=== PATIENT | female | born 1955 | race Caucasian/White ===

== ENCOUNTER 2018-06-29 12:12 | Outpatient (REF) | payer BC, SELFPAY ==
--- NOTE | 2018-06-29 11:45 | PAPFT_PTH ---
PATIENT: Evita Pickard LOC: [facility]#:[id number] AGE/SX: 63/F ROOM: RE06/29/[address]: Ryan Porter : 1955 BED: DIS: 06/29/2018 SPEC #: [id number] RECD: 06/30/18 13:02 STATUS: KIRBY HENDERSON #: [id number] ROBBIE: 06/29/18 11:[address]: Ryan Porter DEPT: [facility] Cytology RECD BY: Beckie Ruano ENTERED: 06/30/18 13:02 SP TYPE: PAPFT OTHR DR: Salas Fitch Tissues: 1 - CX/ENDOCX FOR PAP SMEARS Procedures: PAP THIN PREP/[facility] Screening HPV DNA PROBE Comments: [id number]
[2018-06-29 20:43] LABS: Anion Gap 6.5 mmol/L (3-11); BUN 12 mg/dL (7-18); CO2 30.5 mmol/L (21.0-32.0); CREATININE 0.72 mg/dL (0.55-1.02); Calcium 9.1 mg/dL (8.5-10.1); Chloride 105 mmol/L (98-107); Glucose 90 mg/dL (70-100); LDL CHOLESTEROL 93 mg/dL (<100); Potassium 3.9 mmol/L (3.5-5.1); Sodium 142 mmol/L (136-145)
== END 2018-06-29 12:32 ==
LOC: NCHCN 12:12
PROVIDERS: PCP Physician Assistant; Visit Provider Internal Medicine
DX: Z00.00 Encounter for general adult medical examination without abnormal findings (principal); Z13.220 Encounter for screening for lipoid disorders; Z13.228 Encounter for screening for other metabolic disorders; Z12.4 Encounter for screening for malignant neoplasm of cervix; Z11.51 Encounter for screening for human papillomavirus (HPV); Z01.419 Encounter for gynecological examination (general) (routine) without abnormal findings
CPT/HCPCS: 80048; 83721; 88142; 87624

== ENCOUNTER 2021-03-12 17:17 | Outpatient (REF) | payer OTHER, SELFPAY ==
[2021-03-12 20:49] LABS: HCT 43.6 % (36.0-46.0); MCH 30.9 pg (27.0-33.0); MCHC 34.4 % (32.0-36.0); MCV 89.9 fL (80-95); MPV 10.1 fL (8.0-11.0); Platelet Count 280 10^3/uL (130-400); RBC 4.85 10^6/uL (3.93-5.22); RDW 11.9 % (11.7-14.6); RDW-SD 38.9 fL; WBC 6.22 10^3/uL (4.4-10.8)
[2021-03-12 20:58] LABS: Anion Gap 12.6 mmol/L (3-11); BUN 12 mg/dL (7-18); CO2 26.4 mmol/L (21.0-32.0); CREATININE 0.7 mg/dL (0.55-1.02); Calcium 9.4 mg/dL (8.5-10.1); Chloride 105 mmol/L (98-107); Glucose 98 mg/dL (74-106); Potassium 3.6 mmol/L (3.5-5.1); Sodium 144 mmol/L (136-145); TSH 2.26 uIU/mL (0.36-3.74)
[2021-03-12 21:35] LABS: COMMENT (LAB VIEW ONLY) 14.69 mg/dL
[2021-03-12 21:43] LABS: PROTEIN < 6.0 mg/dL
== END 2021-03-12 17:18 | disposition home or self-care (01) ==
LOC: NCHCN 17:17
PROVIDERS: PCP Physician Assistant; Visit Provider Internal Medicine
DX: Z00.00 Encounter for general adult medical examination without abnormal findings (principal); M48.061 Spinal stenosis, lumbar region without neurogenic claudication; E66.9 Obesity, unspecified; I10 Essential (primary) hypertension
CPT/HCPCS: 80048; 85027; 82565; 84156; 84443

== ENCOUNTER 2023-06-24 15:57 | Outpatient (REF) | payer MEDICARE, SELFPAY ==
[2023-06-24 19:02] LABS: Anion Gap 8.5 mmol/L (3-11); BUN 15 mg/dL (7-18); CO2 30.5 mmol/L (21.0-32.0); CREATININE 0.8 mg/dL (0.55-1.02); Calcium 9.7 mg/dL (8.5-10.1); Chloride 101 mmol/L (98-107); Estimated GFR 81.21 (mL/min/1.73m2); Glucose 106 mg/dL (74-106); Potassium 3.7 mmol/L (3.5-5.1); Sodium 140 mmol/L (136-145)
== END 2023-06-24 15:58 | disposition home or self-care (01) ==
LOC: NCHCN 15:57
PROVIDERS: PCP Physician Assistant; Visit Provider Internal Medicine
DX: I10 Essential (primary) hypertension (principal)
CPT/HCPCS: 80048; 84443

== ENCOUNTER 2023-09-10 15:57 | Outpatient (REF) | payer MEDICARE, SELFPAY ==
[2023-09-10 18:58] LABS: Anion Gap 10.1 mmol/L (3-11); BUN 13 mg/dL (7-18); CO2 28.9 mmol/L (21.0-32.0); CREATININE 0.9 mg/dL (0.55-1.02); Calcium 9.8 mg/dL (8.5-10.1); Chloride 101 mmol/L (98-107); Estimated GFR 70.51 (mL/min/1.73m2); Glucose 106 mg/dL (74-106); Sodium 140 mmol/L (136-145)
[2023-09-10 19:04] LABS: Potassium 2.9 mmol/L (3.5-5.1)
== END 2023-09-10 15:58 | disposition home or self-care (01) ==
LOC: NCHCN 15:57
PROVIDERS: PCP Physician Assistant; Visit Provider Internal Medicine
DX: R03.0 Elevated blood-pressure reading, without diagnosis of hypertension (principal)
CPT/HCPCS: 80048